=== PATIENT | female | born 1985 | race Caucasian/White ===

== ENCOUNTER 2019-02-24 19:05 | Emergency (ER) | payer MEDICARE, MEDICAID ==
[~2019-02-24] VITALS: Ht 165.1 cm; Wt 73.1 kg
[2019-02-24] MEDS ORDERED: IBUPROFEN 600MG TABLET PO ONE (21:45)
[2019-02-25] VITALS: BP 99/58
== END 2019-02-25 00:38 | disposition home or self-care (01) ==
LOC: ER 19:05
DX: S93.491A Sprain of other ligament of right ankle, initial encounter (principal); V49.49XA Driver injured in collision with other motor vehicles in traffic accident, initial encounter; Y93.89 Activity, other specified; Y92.89 Other specified places as the place of occurrence of the external cause; Y99.8 Other external cause status; Z90.49 Acquired absence of other specified parts of digestive tract; Z98.51 Tubal ligation status; Z90.89 Acquired absence of other organs
CPT/HCPCS: 71045; 73030; 73600; 81025; 99283

== ENCOUNTER 2020-01-16 11:31 | Inpatient (IN) | payer MEDICARE, MEDICAID ==
[~2020-01-16] VITALS: Ht 157.5 cm; Wt 68.0 kg
[2020-01-16] MEDS ORDERED: SODIUM CHLORIDE 0.9% 1,000 ML IV ONE (12:01)
[2020-01-16] MEDS ORDERED: IBUPROFEN 600MG TABLET PO STA (12:01)
[2020-01-16 12:35] LABS: BASOPHILS % 0.3 % (0.0-2.0); HEMATOCRIT. 43.4 % (36.0-48.0); LYMPHOCYTES % 19.3 % (20.0-50.0); MEAN CORPUSCULAR VOLUME 89.9 fL (81.0-99.0); MONOCYTES % 13.2 % (2.0-8.0); NEUTROPHILS % 67.2 % (40.0-76.0); PLATELET 140 x1000/uL (130-400); RED BLOOD CELL COUNT 4.83 mill/uL (4.2-5.4); RED CELL DISTRIBUTION WIDTH 12.5 % (11.6-14.6)
[2020-01-16 12:40] LABS: CHLORIDE 103 mEq/L (98-107)
[2020-01-16 12:44] LABS: PROTHROMBIN TIME 10.7 sec (9.6-11.0)
[2020-01-16] MEDS ORDERED: ACETAMINOPHEN 500MG TABLET PO ONE (12:45)
[2020-01-16 13:04] LABS: CLARITY URINE TURBID (CLEAR); COLOR URINE DARK YELLOW (YELLOW); KETONES URINE TRACE (NEGATIVE); LEUKOCYTE ESTERASE URINE 2+ (NEGATIVE); NITRITE URINE NEGATIVE (NEGATIVE); OCCULT BLOOD URINE 3+ (NEGATIVE); PROTEIN URINE 1+ (NEGATIVE); SPECIFIC GRAVITY URINE 1.018 (1.005-1.030)
[2020-01-16] MEDS ORDERED: CEFTRIAXONE 1 G PREMIX 50 ML IV ONE (13:15)
[2020-01-16] MEDS ORDERED: SODIUM CHLORIDE 0.9% 1000ML BAG (SEPSIS BOLUS) IV ONE (14:00)
[2020-01-16] MEDS ORDERED: IBUPROFEN 600MG TABLET PO PRN (15:45)
[2020-01-16] MEDS ORDERED: CEFTRIAXONE 1 G PREMIX 50 ML IV SCH (17:15)
[2020-01-16] MEDS ORDERED: DOCUSATE SODIUM 100MG CAPSULE PO PRN (17:15)
[2020-01-16] MEDS ORDERED: LORAZEPAM 2MG/ML CPJ IV PRN (17:15)
[2020-01-16] MEDS ORDERED: ACETAMINOPHEN 325MG TABLET PO PRN (17:15)
[2020-01-16] MEDS ORDERED: MAGNESIUM/ALUMINUM HYDROXIDE/SIMETHICONE 30ML UDC PO PRN (17:15)
[2020-01-16] MEDS ORDERED: ONDANSETRON HCL 4MG/2ML INJ IV PRN (17:15)
[2020-01-16] MEDS ORDERED: CLONIDINE 0.1MG TABLET PO PRN (17:15)
[2020-01-16 19:30] VITALS: BP 100/61
[2020-01-16 20:00] VITALS: BP 100/61
[2020-01-16] MEDS: SODIUM CHLORIDE 0.45% 1,000 ML IV SCH (20:39)
[2020-01-17 00:19] VITALS: BP 111/69
[2020-01-17] MEDS: SODIUM CHLORIDE 0.45% 1,000 ML IV SCH (06:24)
[2020-01-17 07:05] LABS: BASOPHILS % 0.4 % (0.0-2.0); HEMATOCRIT. 37.9 % (36.0-48.0); HEMOGLOBIN. 12.8 g/dL (12.0-16.0); LYMPHOCYTES % 23.6 % (20.0-50.0); MEAN CORPUSCULAR HEMOGLOBIN 30.8 pg (28.0-32.0); MEAN PLATELET VOLUME 9.2 fl (7.4-10.4); PLATELET 108 x1000/uL (130-400); RED BLOOD CELL COUNT 4.16 mill/uL (4.2-5.4); RED CELL DISTRIBUTION WIDTH 12.5 % (11.6-14.6)
[2020-01-17 07:40] LABS: CHLORIDE 106 mEq/L (98-107)
[2020-01-17 07:52] LABS: LDL CHOLESTEROL 74 mg/dL (5-100)
[2020-01-17 07:54] LABS: HDL CHOLESTEROL 42 mg/dL (40-59); T4 FREE 1.18 ng/dL (0.76-1.46)
[2020-01-17 08:00] VITALS: BP 117/76
[2020-01-17 12:00] VITALS: BP 95/55
[2020-01-17] MEDS ORDERED: CEFTRIAXONE 1,000 MG in DEXTROSE 5% WATER 50 ML IV SCH (14:00)
[2020-01-17 16:00] VITALS: BP 105/67
[2020-01-19] MEDS ORDERED: TRAV2.5D6 EACHEYE (22:33)
[2020-01-19] MEDS ORDERED: DORZ10DR9 RIGHTEYE (22:33)
[2020-01-19] MEDS ORDERED: ERYT1OIN6 RIGHTEYE (22:33)
[2020-01-19] MEDS ORDERED: BRIM5DRO BOTHEYE (22:33)
== END 2020-01-17 16:35 | disposition left against medical advice (07) | DRG 871 ==
LOC: ER 11:51 → 7WST 15:50 → EDBEDREQTM 15:51 → EDBEDREQ 15:51 → ENRESERV 17:30
PROVIDERS: ADMIT Hospitalist; ATTEND Hospitalist
DX: A41.9 Sepsis, unspecified organism (principal); U07.1 COVID-19; N39.0 Urinary tract infection, site not specified; G40.909 Epilepsy, unspecified, not intractable, without status epilepticus; Z53.29 Procedure and treatment not carried out because of patient's decision for other reasons; R74.01 Elevation of levels of liver transaminase levels; D72.810 Lymphocytopenia; Z90.49 Acquired absence of other specified parts of digestive tract; Z98.51 Tubal ligation status; Z20.828 Contact with and (suspected) exposure to other viral communicable diseases; B96.89 Other specified bacterial agents as the cause of diseases classified elsewhere
CPT/HCPCS: 36415; 71045; 80053; 80061; 81003; 83605; 84145; 84439; 84443; 85025; 87635; 93005; 93970; 99285; J0696; J7030; J7060

== ENCOUNTER 2024-01-09 11:07 | Emergency (ER) | payer MEDICARE, MEDICAID ==
[~2024-01-09] VITALS: Ht 157.5 cm; Wt 57.6 kg
[~2024-01-09 11:07] MED LIST: BRIM5DRO BOTHEYE; DORZ10DR9 RIGHTEYE; ERYT1OIN6 RIGHTEYE; TRAV2.5D6 EACHEYE
[2024-01-09 11:25] VITALS: TEMP 98.6; O2SAT 100
[2024-01-09] MEDS ORDERED: FLUORESCEIN SODIUM 1MG/STRIP BOTHEYE ONE (12:30)
[2024-01-09] MEDS ORDERED: TETRACAINE 0.5% OPHTH DROPS 4ML BOTHEYE ONE (12:30)
[2024-01-09] MEDS ORDERED: MORPHINE SULFATE 4 MG/ML INJ (FOR IV/IM USE) IV STA (12:33)
[2024-01-09] MEDS ORDERED: TETANUS, DIPHTHERIA, PERTUSSIS VAC/PF 0.5ML (>10YR OLD) IM ONE ×2 (12:45→14:30)
[2024-01-09] MEDS ORDERED: SODIUM CHLORIDE 0.9% 1,000 ML IV ONE (12:45)
[2024-01-09 14:31] VITALS: O2SAT 99
[2024-01-09 14:45] VITALS: BP 127/78; PULSE 77; RESP 14
[2024-01-09] MEDS: MORPHINE SULFATE 4 MG/ML INJ (FOR IV/IM USE) IV NR (14:45)
== END 2024-01-09 15:00 | disposition short-term general hospital (02) ==
LOC: ER 11:07
DX: T22.20XA Burn of second degree of shoulder and upper limb, except wrist and hand, unspecified site, initial encounter (principal); T31.0 Burns involving less than 10% of body surface; T79.9XXA Unspecified early complication of trauma, initial encounter; Z90.49 Acquired absence of other specified parts of digestive tract; Z86.59 Personal history of other mental and behavioral disorders; X08.8XXA Exposure to other specified smoke, fire and flames, initial encounter; Y93.89 Activity, other specified; Y92.89 Other specified places as the place of occurrence of the external cause; Y99.8 Other external cause status
CPT/HCPCS: 99285; 96374; 90715; J2270; J7030; 90471